=== PATIENT | female | born 1970 | race Caucasian/White ===

== ENCOUNTER 2020-09-24 23:40 | Emergency (ER) | payer SELFPAY ==
[2020-09-24] MEDS ORDERED: Boostrix 0.5 ML (Tdap) VIAL ONE (23:53)
[2020-09-24] MEDS ORDERED: HYDROcodone/Acetaminophen 10/325 mg Tablet ONE (23:53)
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
--- NOTE | 2020-09-25 08:16 | RAD ---
EXAM: 3 views of the left hand COMPARISON: None HISTORY: Hand pain FINDINGS: 3 views of the hand shows no evidence of acute fracture or dislocation. No degenerative josue nges are seen. Mild dorsal soft tissue swelling is present. IMPRESSION: Unremarkable exam.
== END 2020-09-25 01:57 | disposition home or self-care (01) ==
LOC: MADERS 23:40
DX: S00.11XA Contusion of right eyelid and periocular area, initial encounter (principal); S50.12XA Contusion of left forearm, initial encounter; S50.11XA Contusion of right forearm, initial encounter; S60.212A Contusion of left wrist, initial encounter; S60.221A Contusion of right hand, initial encounter; F31.9 Bipolar disorder, unspecified; F20.9 Schizophrenia, unspecified; F17.210 Nicotine dependence, cigarettes, uncomplicated; Z79.899 Other long term (current) drug therapy; Y04.0XXA Assault by unarmed brawl or fight, initial encounter
CPT/HCPCS: 70450; 70486; 72125; 90471; 90715

== ENCOUNTER 2021-01-07 16:26 | Emergency (ER) | payer OTHER ==
[2021-01-07 17:03] LABS: Bilirubin Negative (Negative); Blood, Urine Negative (Negative); Clarity Clear (Clear); Glucose, Urine (Dipstick) Negative (Negative); Ketone, Urine Negative (Negative); Leukocyte Trace (Negative); Nitrite Negative (Negative); Protein, Urine (Dipstick) Negative (Neg-Trace); Specific Gravity, Urine 1.015 (1.005-1.030); Urobilinogen 0.2 mg/dL (Less than 2)
[2021-01-07 17:04] LABS: Bacteria/HPF Rare-Few HPF (None Seen); RBC/HPF 0-3 HPF (0-3); Squamous Epithelial 0-3 HPF (0-3); WBC/HPF 0-3 HPF (0-3)
[2021-01-07 17:05] LABS: Pregnancy Test - Urine (BHCG) Negative (Negative); Pregu Control Background? CLEAR/WHITE (CLR/WHITE); Pregu Control Bar Appear? YES (CONTROL BAR); Specific Gravity 1.015 (1.002-1.036)
== END 2021-01-07 17:20 | disposition home or self-care (01) ==
LOC: MADERS 16:26
DX: B37.3 Candidiasis of vulva and vagina (principal); F17.210 Nicotine dependence, cigarettes, uncomplicated; Z79.899 Other long term (current) drug therapy
CPT/HCPCS: 81003; 81015; 81025; 99283

== ENCOUNTER 2021-02-12 10:48 | Outpatient (CLI) | payer OTHER | END 2021-02-12 10:49 | disposition home or self-care (01) | LOC: MADRAD 10:48 | PROVIDERS: ATTEND Nurse Practitioner Family | DX: R06.02 Shortness of breath (principal) | CPT/HCPCS: 71046 ==

== ENCOUNTER 2021-03-17 08:22 | Outpatient (CLI) | payer OTHER | END 2021-03-17 08:23 | disposition home or self-care (01) | LOC: MADULT 08:22 | PROVIDERS: ATTEND Internal Medicine Cardiovascular Disease | DX: R10.11 Right upper quadrant pain (principal); K76.0 Fatty (change of) liver, not elsewhere classified | CPT/HCPCS: 93975 ==

== ENCOUNTER 2021-07-14 09:19 | Emergency (ER) | payer OTHER ==
[2021-07-14] MEDS ORDERED: Ondansetron ODT 4 MG TAB ONE (10:05)
[2021-07-14] MEDS ORDERED: Benzonatate 100 MG CAP ONE (10:05)
[2021-07-15 00:43] LABS: SARS-CoV-2 PCR by NAA DETECTED (NotDetected)
== END 2021-07-14 11:30 | disposition home or self-care (01) ==
LOC: MADERS 09:19
DX: R11.2 Nausea with vomiting, unspecified (principal); R50.9 Fever, unspecified; R53.81 Other malaise; R05 Cough; R21 Rash and other nonspecific skin eruption; R19.7 Diarrhea, unspecified; Z20.822 Contact with and (suspected) exposure to COVID-19; F17.210 Nicotine dependence, cigarettes, uncomplicated
CPT/HCPCS: 71046; 87804; Q0162; U0003; U0005

== ENCOUNTER 2021-10-23 23:51 | Emergency (ER) | payer OTHER | END 2021-10-24 00:17 | disposition home or self-care (01) | LOC: MADERS 23:51 | DX: S80.869A Insect bite (nonvenomous), unspecified lower leg, initial encounter (principal); S20.469A Insect bite (nonvenomous) of unspecified back wall of thorax, initial encounter; S40.869A Insect bite (nonvenomous) of unspecified upper arm, initial encounter; S30.860A Insect bite (nonvenomous) of lower back and pelvis, initial encounter; W57.XXXA Bitten or stung by nonvenomous insect and other nonvenomous arthropods, initial encounter; F17.210 Nicotine dependence, cigarettes, uncomplicated | CPT/HCPCS: 99282 ==

== ENCOUNTER 2021-12-29 08:38 | Outpatient (CLI) | payer OTHER | END 2021-12-29 08:39 | disposition home or self-care (01) | LOC: MADULT 08:38 | PROVIDERS: ATTEND Family Medicine | DX: R10.11 Right upper quadrant pain (principal); R10.2 Pelvic and perineal pain; K76.0 Fatty (change of) liver, not elsewhere classified; R93.2 Abnormal findings on diagnostic imaging of liver and biliary tract | CPT/HCPCS: 76705 ==

== ENCOUNTER 2021-12-30 10:12 | Outpatient (CLI) | payer OTHER | END 2021-12-30 10:13 | disposition home or self-care (01) | LOC: MADLAB 10:12 → MADCT 10:13 | PROVIDERS: ATTEND Family Medicine | DX: R10.11 Right upper quadrant pain (principal); N83.8 Other noninflammatory disorders of ovary, fallopian tube and broad ligament | CPT/HCPCS: 76856 ==